=== PATIENT | female | born 1980 | race African-American/Black ===

== ENCOUNTER 2020-04-04 12:22 | Emergency (ER) | payer OTHER, SELFPAY ==
--- NOTE | ~2020-04-04 | XR_ITS ---
XR chest 2V DATE: 04/04/2020 13:01 INDICATION: Persistent cough. History of asthma, chronic bronchitis TECHNIQUE: 2 views COMPARISON: 09/18/2006 PA and lateral chest FINDINGS: Normal heart size. No hilar or mediastinal enlargement. No pulmonary infiltrate or consolid ation, pleural effusion or pulmonary vascular congestion or pneumothorax. IMPRESSION: No active cardiopulmonary disease Reviewed, dictated and finalized at location B.
[2020-04-04 12:35] VITALS: BP 159/119; PULSE 110; RESP 20; TEMP 36; O2SAT 100
--- NOTE | 2020-04-04 12:46 | ED.GENADULT ---
HPI - General Adult General Chief complaint: Upper Respiratory Infection Stated complaint: Bronchitis Time Seen by Provider: 04/04/20 12:46 Source: patient and RN notes reviewed Mode of arrival: ambulatory Limitations: no limitations History of Present Illness HPI narrative: 39-year-old -[place] female presents with complains of dry cough for the past 6 days. NyQuil, DayQuil, and routine inhalers without relief. Increase coughing episodes over the past 24 hours. At times her coughing serve enough she has emesis with coughing episodes. Constant dry cough. History of Bronchitis. Intermittent rhinorrhea and nasal congestion. Denies sore throat. No high fevers, drooling, neck or throat swelling. No chest pain, wheezing, or shortness of breath. Symptoms increase at night, exacerbation factor consist of lying down. Denies nausea. The patient reports she have not been diagnosed with COVID-19. The patient reports she is not waiting for the results of a COVID-19 lab test. The patient reports she do not have fever, chills, weakness, fatigue, or myalgia. The patient reports she has a worsening cough. Denies shortness of breath and chest pain. The patient reports she do not have any sore throat, nausea, abdominal pain, and diarrhea. Tolerating po intake well. Denies recent traveling. Denies concerns for COVID-19 or exposures been home with limited outdoor exposure except for essential household needs, work, and return home. At this time, patient is not suspected of having COVID-19. Some parts of this dictation were generated by voice recognition software and may contain typographical and/or grammatical inaccuracies. Related Data Home Medications Medication Instructions Recorded Confirmed albuterol sulfate 1 inh INHALATION QID PRN 04/04/20 04/04/20 cetirizine 10 mg PO DAILY 04/04/20 04/04/20 montelukast 10 mg PO DAILY 04/04/20 04/04/20 valsartan-hydrochlorothiazide 1 tablet PO DAILY 04/04/20 04/04/20 Allergies Allergy/AdvReac Type Severity Reaction Status Date / Time cephalexin Allergy Intermediate Hives / Unverified 04/04/20 12:47 Red Face Review of Systems Review of Systems: Narrative: CONSTITUTIONAL: Denies fever, chills, sweats. EYES: Denies visual changes, redness, discharge. ENT: Denies rhinorrhea, congestion, sore throat, otalgia. CARDIOVASCULAR: Denies chest pain, palpitations, edema. RESPIRATORY: Denies dyspnea, wheezing. Complains of dry cough. GASTROINTESTINAL: Denies abdominal pain, nausea, diarrhea. Complains emesis with coughing episodes. GENITOURINARY: Denies dysuria, hematuria, abnormal discharge. SKIN: Denies rash or itching. MUSCULOSKELETAL: Denies acute back pain, joint pain, or myalgia. NEUROLOGIC: Denies numbness or focal weakness. PSYCHIATRIC: Denies anxiety or depression. All systems reviewed & are unremarkable except as noted in HPI and below. [facility] Past Medical History Medical History (Updated 04/05/20 @ 00:00 by Leana Moreira) Allergies Bronchitis delivery delivered Hypertension Surgical History Surgical History (Updated 04/04/20 @ 13:02 by SUDHIR Kennedy) H/O section X2 Family History Family History (Updated 04/04/20 @ 13:03 by SUDHIR Kennedy) Father , [facility] and bilateral pneumonia Acute myocardial infarction Mother , Murder No problems noted. Social History Social History (Updated 04/04/20 @ 13:04 by SUDHIR Kennedy) Smoking packs per day: 0.5 Smoking cigarettes per day: 10.0 Years smoked: 20 Smoking pack-years: 10.00 Smoking status: Current every day smoker Tobacco type: cigarettes Second hand tobacco smoke exposure: Yes Alcohol intake: current Substance use: never Substance use type: does not use Gender identity (if verbalized by the patient): Female Comments At time of signature, agree with nurse past medical, surgical, social, and family history. The
[2020-04-04 13:08] VITALS: BP 180/120
== END 2020-04-04 13:20 | disposition home or self-care (01) ==
PROVIDERS: Emergency Provider Nurse Practitioner Family
DX: J40 Bronchitis, not specified as acute or chronic (principal); Z20.828 Contact with and (suspected) exposure to other viral communicable diseases; F17.210 Nicotine dependence, cigarettes, uncomplicated; I10 Essential (primary) hypertension
CPT/HCPCS: 71046; 99203; G0463